=== PATIENT | male | born 1935 | race Caucasian/White ===

== ENCOUNTER → 2019-07-12 | Day surgery (SDC) | payer MEDICARE ==
[~2019-07-12] MED LIST: ASPIRIN81 MG PO; CALCIUM 500+D1 EACH PO; FLOMAX0.4 MG PO; FOLIC ACID PO; GLIPIZIDE5 MG PO; JANUVIA100 MG PO; LIPITOR20 MG PO; METFORMIN HCL500 M2 PO; PROPOFOL IV EMULSION 10 MG/ML 20 ML VIAL ONE; VITAMIN B-12500 MC3 PO; VITAMIN D32000 UNI2 PO
--- OUTSIDE RECORDS SUMMARY | 2019-07-12 07:53 | XMS REPORT | Summary of Care ---
Author Author [facility] Unknown Address [facility] Phone Unavailable Care Team Providers Care Route Carrier Name Role Phone NAOMIE Doherty, HANY Unavailable Unavailable Chen [facility]N Unavailable Unavailable TAMANNA P.A., SVETLANA Unavailable Unavailable COLE LEVY [place], ESTELLE Johnson Unavailable Unavailable JOCELINE LEVY [place], JOSE VORA Unavailable Unavailable SUJATA MACHADOP, SEGUNDO Unavailable Unavailable Humble LEVY, Laya Unavailable Unavailable NAOMI LEVY [place], JANICE PRATT Unavailable Unavailable COLE Doherty, ESTELLE Unavailable Unavailable NAOMIE LEVY, HANY Unavailable Unavailable Unavailable Unavailable Functional Status Name Dates Details Functional status health issues are not documented Status: Name Dates Details Cognitive status health issues are not documented Status: Problems Name Dates Details Need for shingles vaccine (V04.89, Z23) Status: Active Abnormal finding on urinalysis (791.9, R82.90) Status: Active Fatigue (780.79, R53.83) Status: Active Cerumen impaction (380.4, H61.20) Status: Active Anxiety (300.00, F41.9) Status: Active Encounter for mini-mental status examination Status: Active At low risk for fall (V49.89, Z91.81) Status: Active Depression screen (V79.0, Z13.31) Status: Active Advance directive discussed with patient (V65.49, Z71.89) Status: Active Hypercalcemia (275.42, E83.52) Status: Active Influenza vaccine needed (V04.81, Z23) Status: Active Abnormal finding on echocardiogram (793.2, R93.1) Status: Active Dyspnea on exertion (786.09, R06.09) Status: Active Need for pneumococcal vaccination (V03.82, Z23) Status: Active Type 2 diabetes mellitus (250.00, E11.9) Status: Active Hypercholesterolemia (272.0, E78.00) Status: Active Flu-like symptoms (780.99, R68.89) Status: Active Dehydration (276.51, E86.0) Status: Active Hospital discharge follow-up (V67.59, Z09) Status: Active Renal mass (593.9, N28.89) Status: Active Pulmonary nodule (793.11, R91.1) Status: Active Pain of toe of left foot (729.5, M79.675) Status: Active Leg cramping (729.82, R25.2) Status: Active Edema (782.3, R60.9) Status: Active Aneurysm, aorta, thoracic (441.2, I71.2) Status: Active Essential (primary) hypertension (401.9, I10) Status: Active Edema, lower extremity (782.3, R60.0) Status: Active Abnormal CBC (790.6, R79.89) Status: Active Abnormal blood chemistry (790.6, R79.9) Status: Active Medications Name Dates Details Accu-Chek FastClix Lancets Test three times daily Quantity: 3 HANY AKBAR M.D. * Start : 13-Jun-2018 Active Each Januvia 100 MG Oral Tablet TAKE 1 TABLET BY MOUTH DAILY * Quantity: 90 Refills: 1 HANY AKBAR M.D. * Start : 09-Mar-2012 Active Atorvastatin Calcium 40 MG Oral Tablet Take 1 tablet by mouth nightly * Quantity: 90 Refills: 1 HANY AKBAR M.D. * Start : 09-Mar-2012 Active Aspirin 81 MG Oral Tablet Chewable 1 a day * Refills: 0 HANY AKBAR M.D. * Start : 09-Mar-2012 Active Folic Acid 800 MCG Oral Tablet TAKE 1 TABLET DAILY DIRECTED. * Refills: 0 HANY AKBAR M.D. * Start : 09-Mar-2012 Active Calcium 1200 6957-8863 MG-UNIT Oral Tablet Chewable TAKE 1 TABLET DAILY * Refills: 0 HANY AKBAR M.D. * Start : 09-Mar-2012 Active Vitamin D 50 MCG (2000 UT) Oral Capsule 1 a day * Refills: 0 HANY AKBAR M.D. * Start : 09-Mar-2012 Active Vitamin B-12 500 MCG Oral Tablet TAKE 1 TABLET DAILY. * Refills: 0 NAOMIE HANY Doherty * Start : 09-Mar-2012 Active metFORMIN HCl ER 500 MG Oral Tablet Extended Release 24 Hour TAKE 2 TABLETS BY MOUTH TWICE A DAY * Quantity: 360 Refills: 1 HANY AKBAR M.D. * Start : 09-Aug-2013 Active Accu-Chek Guide In Vitro Strip Test three times daily. * Quantity: 300 Refills: 0 HANY AKBAR M.D. * Start : 27-Apr-2016 Active glipiZIDE ER 2.5 MG Oral Tablet Extended Release 24 Hour TAKE 1 TABLET BY MOUTH TWICE DAILY * Quantity: 180 Refills: 1 HANY AKBAR M.D. * Start : 15-Jun-2017 Active Phenazopyridine HCl - 200 MG Oral Tablet * Refills: 0 TAMANNA P.A.SVETLANA * Start : 04-Jun-2019 Active Dutasteride-Tamsulosin HCl - 0.5-0.4 MG Oral Capsule * Refills: 0 TAMANNA P.A., SVETLANA * Start : 04-Jun-2019 Active Sulfamethoxazole-Trimethoprim 800-160 MG Oral Tablet * Refills: 0 TAMANNA P.A.SVETLANA * Start : 04-Jun-2019 Active Tamsulosin HCl - 0.4 MG Oral Capsule TAKE 1 CAPSULE DAILY * Refills: 0 Active Phenazopyridine HCl - 200 MG Oral Tablet TAKE 1 TABLET 3 TIMES DAILY * Refills: 0 Active Bactrim DS 800-160 MG Oral Tablet TAKE 1 TABLET TWICE DAILY * Refills: 0 Active Allergies and Adverse Reactions Name Dates Details Penicillins (Allergy) Status: Active Past Medical History Name Dates Details Influenza vaccine needed (V04.81, Z23) Status: Active History of Reported A Previous Medical History Of Fracture Status: Resolved History of Retinal tear of right eye (361.00, H33.311) Status: Resolved Procedures Procedure Dates Details [QLH] CMP W/EGFR Date: 14-Jun-2019 [QLH] CBC (INCLUDES DIFF/PLT) Date: 14-Jun-2019 [QLH] MICROALBUMIN, RANDOM URINE (W/CREATININE) Date: 14-Jun-2019 History of Surgery Vas Deferens Vasectomy Completed History of Cataract Surgery Completed 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 Completed Immunization Name Dates Details Influenza on: 04-Feb-2009 Fluzone INJ Lot #: [id number] on: 08-Mar-2013 Zoster (Zostavax) Lot #: [id number] on: 05-Feb-2014 Fluzone INJ Lot #: [id number] on: 26-Feb-2014 Fluzone INJ Lot #: [id number] on: 11-Mar-2015 Influenza Lot #: [id number] on: 04-Mar-2016 Fluzone High-Dose 0.5 ML Intramuscular Suspension Prefilled Syringe Lot #: [id number] on: 01-Mar-2017 Prevnar 13 Intramuscular Suspension Lot #: [id number] on: 01-Mar-2017 Fluzone High-Dose 0.5 ML Intramuscular Suspension Prefilled Syringe Lot #: [id number] on: 23-Feb-2018 Shingrix 50 MCG/0.5ML Intramuscular Suspension Reconstituted on: 14-Mar-2018 Tdap (Boostrix) on: 14-Mar-2018 Shingrix 50 MCG Intramuscular Suspension Reconstituted on: 28-Jun-2018 Fluzone High-Dose 0.5 ML Intramuscular Suspension Prefilled Syringe on: 12-Feb-2019 Influenza on: 12-Feb-2019 Pneumovax 23 25 MCG/0.5ML Injection Injectable Lot #: [id number] on: 12-Feb-2019 Family History Name Dates Details Family history of Diabetes Mellitus (V18.0) Comments: Family History Status: Active Family history of cardiovascular disease (V17.49, Z82.49) Comments: Family History Status: Active Name Dates Details Family history of Diabetes Mellitus (V18.0) Status: Active Name Dates Details Family history of cardiovascular disease (V17.49, Z82.49) Status: Active Social History Name Dates Details - Status: Name Dates Details Former smoker Former smoker Vital Signs Date Test Result Details [id number] BP Systolic 102 mm[Hg] Status: Comments: Location: LUE; Position: Sitting BP Diastolic 63 mm[Hg] Status: Comments: Location: LUE; Position: Sitting Height 72 in Status: Weight 251.4375 lb Status: Body Mass Index Calculated 34.1 kg/m2 Status: Body Surface Area Calculated 2.35 m2 Status: Temperature 97.3 f Status: Comments: Method: Temporal Heart Rate 108 /min Status: Comments: Location: L Brachial Artery; Respiration Rate 16 /min Status: Physical Findings 0 Status: Comments: Alcohol Screen - How many times in the past yr have you had 5 (for M) or 4 (for F) or 4 (for all > 65yrs) or more drinks in a day? :46 BP Systolic 134 mm[Hg] Status: Comments: Location: LUE; Position: Sitting BP Diastolic 81 mm[Hg] Status: Comments: Location: LUE; Position: Sitting Height 72 in Status: Weight 259 lb Status: Body Mass Index Calculated 35.13 kg/m2 Status: Body Surface Area Calculated 2.38 m2 Status: Temperature 97.6 f Status: Comments: Method: Temporal Heart Rate 84 /min Status: Respiration Rate 16 /min Status: Results Date Description Value Details :41 [QL] CMP W/EGFR GLUCOSE 224 mg/dl (Above high threshold) Range: 65-99 Comments: Fasting reference interval For someone without known diabetes, a glucosevalue >125 mg/dL indicates that they may havediabetes and this should be confirmed with afollow-up test. UREA NITROGEN (BUN) 31 mg/dl (Above high threshold) Range: 7-25 CREATININE 1.28 mg/dl (Above high threshold) Range: 0.70-1.11 Comments: For patients >49 years of age, the reference limitfor Creatinine is approximately 13% higher for peopleidentified as -Indonesian. eGFR NON- 51 {ML/MIN/1.7} (Below low threshold) Range: > OR=60 eGFR 59 {ML/MIN/1.7} (Below low threshold) Range: > OR=60 BUN/CREATININE RATIO 24 {CALC} (Above high threshold) Range: 6-22 SODIUM 135 mmol/L (Normal) Range: 135-146 POTASSIUM 4.8 mmol/L (Normal) Range: 3.5-5.3 CHLORIDE 98 mmol/L (Normal) Range: 98-110 CARBON DIOXIDE 26 mmol/L (Normal) Range: 20-32 CALCIUM 10.3 mg/dl (Normal) Range: 8.6-10.3 PROTEIN, TOTAL 6.9 g/dl (Normal) Range: 6.1-8.1 ALBUMIN 3.8 g/dl (Normal) Range: 3.6-5.1 GLOBULIN 3.1 {G/DL__CALC} (Normal) Range: 1.9-3.7 ALBUMIN/GLOBULIN RATIO 1.2 {CALC} (Normal) Range: 1.0-2.5 BILIRUBIN, TOTAL 0.4 mg/dl (Normal) Range: 0.2-1.2 ALKALINE PHSPHATASE 79 u/l (Normal) Range: 40-115 AST 18 u/l (Normal) Range: 10-35 ALT 19 u/l (Normal) Range: 9-46 [id number]-[id number] [QLH] CBC (INCLUDES DIFF/PLT) WHITE BLOOD CELL COUNT 8.7 {Thousand/u} (Normal) Range: 3.8-10.8 RED BLOOD CELL COUNT 4.22 {Million/uL} (Normal) Range: 4.20-5.80 HEMAGLOBIN 12.7 g/dl (Below low threshold) Range: 13.2-17.1 HEMATOCRIT 38.2 % (Below low threshold) Range: 38.5-50.0 MCV 90.5 fL (Normal) Range: 80.0-100.0 MCH 30.1 pg (Normal) Range: 27.0-33.0 MCHC 33.2 g/dl (Normal) Range: 32.0-36.0 RDW 12.1 % (Normal) Range: 11.0-15.0 PLATELET COUNT 315 {Thousand/u} (Normal) Range: 140-400 MPV 9.1 fL (Normal) Range: 7.5-12.5 ABSOLUTE NEUTROPHILS 6986 {cells/uL} (Normal) Range: 4514-3407 ABSOLUTE LYMPHOCYTES 835 {cells/uL} (Below low threshold) Range: 850-3900 ABSOLUTE MONOCYTES 583 {cells/uL} (Normal) Range: 200-950 ABSOLUTE EOSINOPHILS 244 {cells/uL} (Normal) Range: 15-500 ABSOLUTE BASOPHILS 52 {cells/uL} (Normal) Range: 0-200 NEUTROPHILS 80.3 % (Normal) LYMPHOCYTES 9.6 % (Normal) MONOCYTES 6.7 % (Normal) EOSINOPHILS 2.8 % (Normal) BASOPHILS 0.6 % (Normal) [id number]-[id number] [QL] TSH, 3RD GENERATION W/REFLEX TO FT4 Comments: REPORT COMMENT:FASTING:YES TSH, 3RD GENERATION W/REFLEX TO FT4 1.52 {MIU/L} (Normal) Range: 0.40-4.50 Plan of Care Name Dates Details Planned Observations Planned Goals not documented Planned Encounters Appointment; HANY AKBAR M.D. On: 05-Jul-2019 9:30 Appointment; LAYA JOHNSON M.D. On: 16-Oct-2019 9:00 Instructions Name Dates Details Instructions not documented Encounters Appointment; HANY AKBAR M.D. Encounter Diagnosis: Problem not documented On: 30-Jun-2017 8:30 Appointment; HANY AKBAR M.D. Encounter Diagnosis: Problem not documented On: 20-Oct-2017 8:30 Appointment; HANY AKBAR M.D. Encounter Diagnosis: Problem not documented On: 21-Feb-2018 8:00 Appointment; SEGUNDO ERNST NP Encounter Diagnosis: Problem not documented On: 23-Feb-2018 14:00 Appointment; HANY AKBAR M.D. Encounter Diagnosis: Problem not documented On: 22-May-2018 8:00 Appointment; HANY AKBAR M.D. Encounter Diagnosis: Problem not documented On: 12-Jul-2018 13:30 Appointment; SEGUNDO ERNST NP Encounter Diagnosis: Problem not documented On: 30-Aug-2018 14:30 Appointment; JHONATHAN, ECHO Encounter Diagnosis: Problem not documented On: 12-Sep-2018 14:00 Appointment; LAYA JOHNSON M.D. Encounter Diagnosis: Problem not documented On: 20-Sep-2018 16:40 Appointment; JHONATHAN, NUCLEAR Encounter Diagnosis: Problem not documented On: 17-Oct-2018 8:15 Appointment; LAYA JOHNSON M.D. Encounter Diagnosis: Problem not documented On: 17-Oct-2018 12:20 Appointment; HANY AKBAR M.D. Encounter Diagnosis: Problem not documented On: 07-Nov-2018 8:00 Appointment; SEGUNDO ERNST NP Encounter Diagnosis: Problem not documented On: 12-Feb-2019 8:00 Appointment; HANY AKBAR M.D. Encounter Diagnosis: Problem not documented On: 22-Feb-2019 9:00 Appointment; SEGUNDO ERNST NP Encounter Diagnosis: Problem not documented On: 24-Apr-2019 10:00 Appointment; SEGUNDO ERNST NP Encounter Diagnosis: Problem not documented On: 08-May-2019 9:30 Appointment; SVETLANA NOLEN P.A. Encounter Diagnosis: Problem not documented On: 04-Jun-2019 13:45 Appointment; NAOMI, JANICE, M.D. Encounter Diagnosis: Problem not documented On: 05-Jun-2019 10:15 Appointment; SEGUNDO ERNST NP Encounter Diagnosis: Problem not documented On: 12-Jun-2019 9:30
--- OUTSIDE RECORDS SUMMARY | 2019-07-12 07:53 | XMS REPORT | Summary of Care ---
Author Author [facility] Unknown Address [facility] Phone Unavailable Care Team Providers Care Decoration Checker Name Role Phone NAOMIE Doherty, HANY Unavailable Unavailable COLE LEVY [place], ESTELLE Johnson Unavailable Unavailable JOCELINE LEVY [place], JOSE VORA Unavailable Unavailable SUJATA MACHADOP, SEGUNDO Unavailable Unavailable Humble LEVY, Laya Unavailable Unavailable NAOMI LEVY [place], JANICE PRATT Unavailable Unavailable COLE Doherty, ESTELLE [...] for pneumococcal vaccination (V03.82, Z23) Status: Active Flu-like symptoms (780.99, R68.89) Status: Active Dehydration (276.51, E86.0) Status: Active Hospital discharge follow-up (V67.59, Z09) Status: Active Renal mass (593.9, N28.89) Status: Active Pulmonary nodule (793.11, R91.1) Status: Active Pain of toe of left foot (729.5, M79.675) Status: Active Leg cramping (729.82, R25.2) Status: Active Edema (782.3, R60.9) Status: Active Aneurysm, aorta, thoracic (441.2, I71.2) Status: Active Edema, lower extremity (782.3, R60.0) Status: Active Abnormal CBC (790.6, R79.89) Status: Active Abnormal blood chemistry (790.6, R79.9) Status: Active Type 2 diabetes mellitus (250.00, E11.9) Status: Active Essential (primary) hypertension (401.9, I10) Status: Active Hypercholesterolemia (272.0, E78.00) Status: Active Medications Name Dates Details Accu-Chek FastClix Lancets Test three times daily Quantity: 3 HANY AKBAR M.D. * Start : 13-Jun-2018 Active Each Januvia 100 MG Oral Tablet TAKE 1 TABLET BY MOUTH DAILY * Quantity: 90 Refills: 1 HANY AKBAR M.D. * Start : 09-Mar-2012 Active Lisinopril 20 MG Oral Tablet TAKE 1 TABLET BY MOUTH DAILY NOT TAKING * Quantity: 90 Refills: 1 HANY AKBAR [...] * Start : 09-Mar-2012 Active Calcium 1200 7625-2596 MG-UNIT Oral Tablet Chewable TAKE 1 TABLET DAILY * Refills: 0 HANY AKBAR M.D. * Start : 09-Mar-2012 Active Vitamin D 50 MCG (2000 UT) Oral Capsule 1 a day * Refills: 0 HANY AKBAR M.D. * Start : 09-Mar-2012 Active Vitamin B-12 500 MCG Oral Tablet TAKE 1 TABLET DAILY. * Refills: 0 HANY AKBAR M.D. * Start : 09-Mar-2012 Active metFORMIN HCl ER 500 MG Oral Tablet Extended Release 24 Hour take 3 tablets a day * Quantity: 360 Refills: 1 HANY AKBAR M.D. * Start : 09-Aug-2013 Active Accu-Chek Guide In Vitro Strip Test three times daily. * Quantity: 300 Refills: 3 HANY AKBAR M.D. * Start : 27-Apr-2016 Active glipiZIDE ER 2.5 MG Oral Tablet Extended Release 24 Hour TAKE 1 TABLET BY MOUTH TWICE DAILY * Quantity: 180 Refills: 1 HANY AKBAR M.D. * Start : 15-Jun-2017 Active Tamsulosin HCl - 0.4 MG Oral Capsule TAKE 1 CAPSULE DAILY * Refills: 0 Active Allergies and [...] Influenza on: 04-Feb-2009 Fluzone INJ Lot #: [id number] on: 08-Mar-2013 Zoster (Zostavax) Lot #: [id number] on: 05-Feb-2014 Fluzone INJ Lot #: [id number] on: 26-Feb-2014 Fluzone INJ Lot #: [id number] on: 11-Mar-2015 Influenza Lot #: [id number] on: 04-Mar-2016 Fluzone High-Dose 0.5 ML Intramuscular Suspension Prefilled Syringe Lot #: [id number] on: 01-Mar-2017 Prevnar 13 Intramuscular Suspension Lot #: [id number] on: 01-Mar-2017 Fluzone High-Dose 0.5 ML Intramuscular Suspension Prefilled Syringe Lot #: [id number] on: 23-Feb-2018 Shingrix 50 MCG/0.5ML Intramuscular Suspension Reconstituted on: 14-Mar-2018 Tdap (Boostrix) on: 14-Mar-2018 Shingrix 50 MCG Intramuscular Suspension Reconstituted on: 28-Jun-2018 Fluzone High-Dose 0.5 ML Intramuscular Suspension Prefilled Syringe on: 12-Feb-2019 Influenza on: 12-Feb-2019 Pneumovax 23 25 MCG/0.5ML Injection Injectable Lot #: [id number] on: 12-Feb-2019 Family History Name Dates Details [...] smoker Vital Signs Date Test Result Details :03 BP Systolic 136 mm[Hg] Status: BP Diastolic 72 mm[Hg] Status: Weight 251 lb Status: Body Mass Index Calculated 34.04 kg/m2 Status: Body Surface Area Calculated 2.35 m2 Status: Heart Rate 72 /min Status: :51 BP Systolic 138 mm[Hg] Status: Comments: Location: RUE; Position: Sitting BP Diastolic 82 mm[Hg] Status: Comments: Location: RUE; Position: Sitting Weight 251 lb Status: Body Mass Index Calculated 34.04 kg/m2 Status: Body Surface Area Calculated 2.35 m2 Status: Heart Rate 72 /min Status: Height 72 in Status: :31 BP Systolic 102 mm[Hg] Status: Comments: Location: LUE; Position: Sitting BP Diastolic 63 mm[Hg] Status: Comments: Location: E; Position: Sitting Weight 251.4375 lb Status: Body Mass Index Calculated 34.1 kg/m2 Status: Body Surface Area Calculated 2.35 m2 Status: Heart Rate 108 /min Status: Comments: Location: L Brachial Artery; Height 72 in Status: Temperature 97.3 f Status: Comments: Method: Temporal Respiration Rate 16 /min Status: Physical Findings 0 Status: Comments: Alcohol Screen - How many times in the past yr have you had 5 (for M) or 4 (for F) or 4 (for all > 65yrs) or more drinks in a day? Results Date Description Value Details :41 [[facility]] CMP W/EGFR GLUCOSE 224 mg/dl (Above high [...] is approximately 13% higher for peopleidentified as -Czech. eGFR NON- 51 {ML/MIN/1.7} (Below low threshold) [...] 10-35 ALT 19 u/l (Normal) Range: 9-46 :41 [[facility]] CBC (INCLUDES DIFF/PLT) WHITE BLOOD CELL COUNT [...] 7.5-12.5 ABSOLUTE NEUTROPHILS 6986 {cells/uL} (Normal) Range: 1141-5083 ABSOLUTE LYMPHOCYTES 835 {cells/uL} (Below low threshold) Range: 850-3900 ABSOLUTE MONOCYTES 583 {cells/uL} (Normal) Range: 200-950 ABSOLUTE EOSINOPHILS 244 {cells/uL} (Normal) Range: 15-500 ABSOLUTE BASOPHILS 52 {cells/uL} (Normal) Range: 0-200 NEUTROPHILS 80.3 % (Normal) LYMPHOCYTES 9.6 % (Normal) MONOCYTES 6.7 % (Normal) EOSINOPHILS 2.8 % (Normal) BASOPHILS 0.6 % (Normal) 91-Pdd-[id number]:41 [[facility]] TSH, 3RD GENERATION W/REFLEX TO FT4 Comments: REPORT COMMENT:FASTING:YES TSH, 3RD GENERATION W/REFLEX TO FT4 1.52 {MIU/L} (Normal) Range: 0.40-4.50 Plan of Care Name Dates Details Planned Observations Planned Goals not documented Planned Encounters Appointment; LAYA JOHNSON M.D. On: 16-Oct-2019 9:00 Interventions Provided Medication Changes* Accu-Chek Guide In Vitro Strip - Renew * Atorvastatin Calcium 40 MG Oral Tablet - Renew * glipiZIDE ER 2.5 MG Oral Tablet Extended Release 24 Hour - Renew * Januvia 100 MG Oral Tablet - Renew Discussion/Summary* A1c and CBG okay. Continue regimen but decrease the Metformin from 2000 mg to 1500 mg daily. He is getting serial eGFR per PCP Discussed the importance of DM control and also the need to avoid hypoglycemia and its complications. Stressed the importance of consistent MNT and med compliance in DM control * Continue to do SMBG. * BP okay off of medicine. Discussed the importance of BP control. * Take medicine. MNT reiterated. Discussed the importance of Lipid control. Instructions Name Dates Details Instructions not documented [...] Problem not documented On: 04-Jun-2019 13:45 Appointment; JANICE SALGADO M.D. Encounter Diagnosis: Problem not documented On: 05-Jun-2019 10:15 Appointment; SEGUNDO ERNST NP Encounter Diagnosis: Problem not documented On: 12-Jun-2019 9:30 Appointment; HANY AKBAR M.D. Encounter Diagnosis: Problem not documented On: 05-Jul-2019 9:30
--- OUTSIDE RECORDS SUMMARY | 2019-07-12 07:53 | XMS REPORT | Summary of Care ---
Author Author NAOMIE Doherty, HANY [place] Unknown Address Unknown Phone Unavailable Care Team Providers Care Family Manager Name Role Phone NAOMIE Doherty, HANY Unavailable Unavailable TAMANNA P.A., SVETLANA Unavailable Unavailable COLE LEVY [place], ESTELLE Johnson Unavailable Unavailable JOCELINE LEVY ID, JOSE VORA Unavailable Unavailable SUJATA REPTILE FARMER, SEGUNDO Unavailable Unavailable Humble LEVY, Laya Unavailable Unavailable NAOMI LEVY ID, JANICE PRATT Unavailable Unavailable COLE Doherty, ESTELLE [...] * Start : 09-Mar-2012 Active Calcium 1200 9971-6825 MG-UNIT Oral Tablet Chewable TAKE 1 TABLET [...] MG Oral Capsule * Refills: 0 TAMANNA P.A.SVETLANA * Start : 04-Jun-2019 Active Sulfamethoxazole-Trimethoprim 800-160 [...] Influenza on: 04-Feb-2009 Fluzone INJ Lot #: [id number] on: 08-Mar-2013 Zoster (Zostavax) Lot #: [id number] on: 05-Feb-2014 Fluzone INJ Lot #: [id number] on: 26-Feb-2014 Fluzone INJ Lot #: [id number] on: 11-Mar-2015 Influenza Lot #: [id number] on: 04-Mar-2016 Fluzone High-Dose 0.5 ML Intramuscular Suspension Prefilled Syringe Lot #: [id number] on: 01-Mar-2017 Prevnar 13 Intramuscular Suspension Lot #: [id number] on: 01-Mar-2017 Fluzone High-Dose 0.5 ML Intramuscular Suspension Prefilled Syringe Lot #: [id number] on: 23-Feb-2018 Shingrix 50 MCG/0.5ML Intramuscular Suspension Reconstituted on: 14-Mar-2018 Tdap (Boostrix) on: 14-Mar-2018 Shingrix 50 MCG Intramuscular Suspension Reconstituted on: 28-Jun-2018 Fluzone High-Dose 0.5 ML Intramuscular Suspension Prefilled Syringe on: 12-Feb-2019 Influenza on: 12-Feb-2019 Pneumovax 23 25 MCG/0.5ML Injection Injectable Lot #: [id number] on: 12-Feb-2019 Family History Name Dates Details [...] smoker Vital Signs Date Test Result Details :31 BP Systolic 102 mm[Hg] Status: Comments: Location: E; Position: Sitting BP Diastolic 63 mm[Hg] Status: Comments: Location: E; Position: Sitting Height 72 in Status: Weight [...] BP Diastolic 81 mm[Hg] Status: Comments: Location: E; Position: Sitting Height 72 in Status: Weight 259 lb Status: Body Mass Index Calculated 35.13 kg/m2 Status: Body Surface Area Calculated 2.38 m2 Status: Temperature 97.6 f Status: Comments: Method: Temporal Heart Rate 84 /min Status: Respiration Rate 16 /min Status: Results Date Description Value Details :41 [[facility]] CMP W/EGFR GLUCOSE 224 mg/dl (Above high [...] is approximately 13% higher for peopleidentified as -Finnish. eGFR NON- 51 {ML/MIN/1.7} (Below low threshold) [...] 10-35 ALT 19 u/l (Normal) Range: 9-46 [id number] [QL] CBC (INCLUDES DIFF/PLT) WHITE BLOOD CELL COUNT [...] 7.5-12.5 ABSOLUTE NEUTROPHILS 6986 {cells/uL} (Normal) Range: 4807-6611 ABSOLUTE LYMPHOCYTES 835 {cells/uL} (Below low threshold) Range: 850-3900 ABSOLUTE MONOCYTES 583 {cells/uL} (Normal) Range: 200-950 ABSOLUTE EOSINOPHILS 244 {cells/uL} (Normal) Range: 15-500 ABSOLUTE BASOPHILS 52 {cells/uL} (Normal) Range: 0-200 NEUTROPHILS 80.3 % (Normal) LYMPHOCYTES 9.6 % (Normal) MONOCYTES 6.7 % (Normal) EOSINOPHILS 2.8 % (Normal) BASOPHILS 0.6 % (Normal) [id number] [QL] TSH, 3RD GENERATION W/REFLEX TO FT4 Comments: REPORT COMMENT:FASTING:YES TSH, 3RD GENERATION W/REFLEX TO FT4 1.52 {MIU/L} (Normal) Range: 0.40-4.50 Plan of Care Name Dates Details Planned Observations Planned Goals not documented Planned Encounters Appointment; HANY AKBAR M.D. On: 05-Jul-2019 9:30 Appointment; LAYA JOHNSON M.D. On: 16-Oct-2019 9:00 Interventions Provided Discussion/Summary* Discussed the importance of DM control and its complications. Stressed the importance of consistent MNT and med compliance in DM control * do SMBG. * Take medicine. Discussed the importance of BP control. [...] not documented On: 12-Jun-2019 9:30 Appointment; HANY ABKAR M.D. Encounter Diagnosis: Problem not documented On: 05-Jul-2019 9:30
--- OUTSIDE RECORDS SUMMARY | 2019-07-12 07:53 | XMS REPORT ---
Author Author [facility] Address Unknown Phone Unavailable Care Team Providers Care Quill Layer Name Role Phone Unavailable Unavailable Problems This patient has no known problems. Allergies, Adverse Reactions, Alerts This patient has no known allergies or adverse reactions. Medications This patient has no known medications. Encounters Start Date/Time End Date/Time Encounter Type Admission Type Attending [facility] Care Department Encounter ID 2019-06-21 08:15:00 2019-06-21 08:15:00 Outpatient [facility] [id number] 2019-06-04 10:42:00 2019-06-04 10:42:00 Outpatient [facility] [id number] 2019-05-25 08:51:00 2019-05-25 08:51:00 Emergency E [facility] [id number] 2019-05-24 06:59:00 2019-05-24 06:59:00 Outpatient [facility] [id number] 2019-05-21 10:57:00 2019-05-21 10:57:00 Outpatient [facility] [id number]
--- OUTSIDE RECORDS SUMMARY | 2019-07-12 07:54 | XMS REPORT | Summary of Care ---
Author Author HANY AKBAR M.D. Unknown Address Unknown Phone Unavailable Care Team Providers Care Vacuum Tester Cans Name Role Phone NAOMIE Doherty, HANY Unavailable Unavailable COLE LEVY DE, ESTELLE Johnson Unavailable Unavailable JOCELINE LEVY DE, JOSE VORA Unavailable Unavailable SUJATA MACHADOP, SEGUNDO Unavailable Unavailable Humble LEVY, Laya Unavailable Unavailable NAOMI LEVY DE, JANICE PRATT Unavailable Unavailable COLE Doherty, ESTELLE [...] * Start : 09-Mar-2012 Active Calcium 1200 1194-1966 MG-UNIT Oral Tablet Chewable TAKE 1 TABLET [...] TAKE 1 CAPSULE DAILY * Refills: 0 M.A. Active Allergies and Adverse Reactions Name Dates [...] Influenza on: 04-Feb-2009 Fluzone INJ Lot #: [id number] on: 08-Mar-2013 Zoster (Zostavax) Lot #: [id number] on: 05-Feb-2014 Fluzone INJ Lot #: [id number] on: 26-Feb-2014 Fluzone INJ Lot #: [id number] on: 11-Mar-2015 Influenza Lot #: [id number] on: 04-Mar-2016 Fluzone High-Dose 0.5 ML Intramuscular Suspension Prefilled Syringe Lot #: [id number] on: 01-Mar-2017 Prevnar 13 Intramuscular Suspension Lot #: [id number] on: 01-Mar-2017 Fluzone High-Dose 0.5 ML Intramuscular Suspension Prefilled Syringe Lot #: [id number] on: 23-Feb-2018 Shingrix 50 MCG/0.5ML Intramuscular Suspension Reconstituted on: 14-Mar-2018 Tdap (Boostrix) on: 14-Mar-2018 Shingrix 50 MCG Intramuscular Suspension Reconstituted on: 28-Jun-2018 Fluzone High-Dose 0.5 ML Intramuscular Suspension Prefilled Syringe on: 12-Feb-2019 Influenza on: 12-Feb-2019 Pneumovax 23 25 MCG/0.5ML Injection Injectable Lot #: [id number] on: 12-Feb-2019 Family History Name Dates Details [...] mm[Hg] Status: Comments: Location: LUE; Position: Sitting Weight 251.4375 lb Status: Body [...] is approximately 13% higher for peopleidentified as -[place]. eGFR NON- 51 {ML/MIN/1.7} (Below low threshold) [...] 7.5-12.5 ABSOLUTE NEUTROPHILS 6986 {cells/uL} (Normal) Range: 2713-2204 ABSOLUTE LYMPHOCYTES 835 {cells/uL} (Below low threshold) Range: 850-3900 ABSOLUTE MONOCYTES 583 {cells/uL} (Normal) Range: 200-950 ABSOLUTE EOSINOPHILS 244 {cells/uL} (Normal) Range: 15-500 ABSOLUTE BASOPHILS 52 {cells/uL} (Normal) Range: 0-200 NEUTROPHILS 80.3 % (Normal) LYMPHOCYTES 9.6 % (Normal) MONOCYTES 6.7 % (Normal) EOSINOPHILS 2.8 % (Normal) BASOPHILS 0.6 % (Normal) [id number] [QLH] TSH, 3RD GENERATION W/REFLEX TO FT4 Comments: REPORT COMMENT:FASTING:YES TSH, 3RD GENERATION W/REFLEX TO FT4 1.52 {MIU/L} (Normal) Range: 0.40-4.50 :49 [O] Hemoglobin A1c (in office) HEMOGLOBIN A1c 6.0 :50 Glucose (Point of Care In Office) Glucose POC Lifescan 107 :50 [O] Lipid Panel (In Office) CHOLESTEROL, TOTAL <100 HDL CHOLESTEROL 57 TRIGLYCERIDES <50 GLUCOSE 102 Plan of Care Name Dates Details Planned Observations Planned Goals not documented Planned Encounters Appointment; HANY AKBAR M.D. On: 11-Oct-2019 9:00 Appointment; LAYA JOHNSON M.D. On: 16-Oct-2019 9:00 Interventions Provided Labs/Procedures/Imaging* [O] Hemoglobin A1c (in office); Done: 05 Jul 2019 * [O] Lipid Panel (In Office); Done: 05 Jul 2019 * Glucose (Point of Care In Office); Done: 05 Jul 2019 Instructions Name Dates Details Instructions not documented [...]
[2019-07-12 12:20] VITALS: BP 137/92
--- NOTE | 2019-07-12 19:07 | Operative Report ---
DATE OF PROCEDURE: SURGEON: Russ Adamson MD PROCEDURE PERFORMED: Flexible sigmoidoscopy. PREOPERATIVE DIAGNOSIS: Abnormal PET scan showing focal activity in the anorectal region. PREOPERATIVE MEDICATIONS: Consisted of IV sedation administered under MAC anesthesia. DESCRIPTION OF PROCEDURE: After normal digital rectal examination, the Olympus Roomish video colonoscope was inserted into the patient's rectum and advanced without difficulty to 30 cm. The colon was studied from that level back down to the rectum. No polypoid lesions, tumors, masses, or inflammatory changes were countered. Down in the rectum, were internal hemorrhoids, but no other disease process was seen. The colonoscope was withdrawn from the patient's rectum and the procedure was ended. Russ Adamson MD SAF/MODL /[id number]
== END | disposition home or self-care (01) ==
LOC: OR 07:51
PROVIDERS: ATTEND Internal Medicine Gastroenterology
DX: R94.8 Abnormal results of function studies of other organs and systems (principal); K64.8 Other hemorrhoids; C64.1 Malignant neoplasm of right kidney, except renal pelvis; E11.9 Type 2 diabetes mellitus without complications; I10 Essential (primary) hypertension; I71.4 Abdominal aortic aneurysm, without rupture; Z88.0 Allergy status to penicillin; Z01.810 Encounter for preprocedural cardiovascular examination; Z79.84 Long term (current) use of oral hypoglycemic drugs; Z79.82 Long term (current) use of aspirin; Z68.34 Body mass index [BMI] 34.0-34.9, adult; Z87.891 Personal history of nicotine dependence
CPT/HCPCS: 36415; 45330; 82948; 93005; J2704; 45378